=== PATIENT | female | born 1980 | race Caucasian/White ===

== ENCOUNTER → 2022-11-18 14:55 | Outpatient (CLI) | payer OTHER, SELFPAY ==
--- NOTE | 2022-12-11 17:43 | PC.NURSE ---
Records requested from [facility] ED for patient visit to [employer] in October. Faxed to [phone]
--- NOTE | 2022-12-11 18:17 | PC.NURSE ---
Dr. Houston Batista, [facility] called to find out Hgb and hct results. no labs except for t &s were done. checked her ob visits as well. Kerri faxed papers earlier to [facility]
== END ==
PROVIDERS: Referring Provider Obstetrics & Gynecology; Visit Provider Obstetrics & Gynecology
DX: O02.1 Missed abortion (principal); Z3A.00 Weeks of gestation of pregnancy not specified
CPT/HCPCS: 36415; 86850; 86900; 86901

== ENCOUNTER → 2023-02-24 11:24 | Outpatient (CLI) | payer OTHER, SELFPAY ==
--- NOTE | 2023-02-24 | DI.US.S_ITS ---
PROCEDURE: US OB <= 14 WEEKS FETUS INDICATIONS: DATING AND VIABILITY OUTSIDE/PRIOR DATING DATA: Last menstrual period (LMP): 01/12/2023. LMP-based estimated date of delivery (RADHA): 10/19/2023. First dating scan (date and location): Today's exam. Estimated date of delivery (RADHA) from first dating scan: Not applicable. TECHNIQUE: Real-time scanning was performed of the fetus and maternal pelvic organs, with image documentation. Endovaginal scanning was also performed to better visualize the fetus and maternal ovaries. COMPARISON: None. FINDINGS: Embryo: Not visualized. No intrauterine gestational sac identified. Heart rate: Not applicable. Maternal organs: Ovaries demonstrate a right corpus luteum cyst but no adnexal mass. IMPRESSION: of unknown location, as no intrauterine is seen and there is no adnexal mass. The differential includes early gestational , ectopic or miscarriage. Trending beta hCGs and sonographic follow-up as necessary. We strive to produce accurate, complete, and clear reports of imaging services. To assist us in improving patient care, this report was composed using standard report templates and voice recognition software. Therefore, it may contain abnormal punctuation, insertions and/or omissions. Occasional wrong-word or sound-alike substitutions may occur. Though we review the report and make efforts to correct it, we do recommend that the report be read carefully in proper context to recognize any text inaccuracies. Dictated by: Guillaume Paulson M.D. on 02/24/2023 at 13:17 Approved by: Guillaume Paulson M.D. on 02/24/2023 at 13:19
== END ==
PROVIDERS: Referring Provider Advanced Practice Midwife; Visit Provider Advanced Practice Midwife
DX: O36.80X0 Pregnancy with inconclusive fetal viability, not applicable or unspecified (principal)
CPT/HCPCS: 76801; 76830